=== PATIENT | male | born 1965 | race Caucasian/White ===

== ENCOUNTER 2019-10-06 22:48 | Inpatient (IN) | payer SELFPAY ==
[~2019-10-06] VITALS: Ht 180.3 cm; Wt 117.5 kg
[2019-10-06 22:52] VITALS: Ht 180.3 cm; Wt 117.5 kg
--- NOTE | 2019-10-06 23:22 | NUR ---
PT PRESENTS TO ER TODAY WITH A GENERALIZES RASH THAT STARTED THIS AM. PT REPORTS THE RASH IS ITCHY BUT DENIES ANY PAIN. PT DENIES ANY FEVER OR N/V AT HOME. PT DENIES ANY CHANGES IN HIS DIET AND PT DENIES TAKING ANY MEDICATIONS AT HOME. PT DENIES ANY PAIN AT THIS TIME. PT NOTED WIHT A GENERALIZED RED AND RAISED RASH. PT IS A/O X4. RESP ARE E/U. NO ACUTE DISTRESS NOTED.
[2019-10-06 23:35] LABS: BASOPHIL % 0.7 % (0-2); PLATELET COUNT 200 x10^3mcL (130-400); RED CELL DISTRIBUTION WIDTH 12.6 % (11.5-14.5)
[2019-10-06 23:46] LABS: CALCIUM 8.3 mg/dL (8.5-10.1); CARBON DIOXIDE 34.5 mmol/L (21-32); CHLORIDE SERUM 100 mmol/L (98-107); CREATININE SERUM 1.1 mg/dL (0.7-1.3); GFR1 > 60 mL/min; GLUCOSE SERUM 229 mg/dL (74-106); POTASSIUM SERUM 4.4 mmol/L (3.5-5.1); SODIUM SERUM 136 mmol/L (136-145)
[2019-10-06 23:51] LABS: ALKALINE PHOSPHATASE 105 U/L (46-116); ALT/SGPT 33 U/L (16-63); AST/SGOT 21 U/L (15-37); BILIRUBIN TOTAL 0.6 mg/dL (0.20-1.00); C REACTIVE PROTEIN 1.4 mg/dL (<=0.9)
[2019-10-06 23:59] LABS: ALBUMIN 3.2 g/dL (3.4-5.0)
--- NOTE | 2019-10-07 02:08 | NUR ---
PT RESTING WITH EYE CLOSED AND EASILY AROUSABLE. PT VITALS ARE STABLE. PT DENIES ANY PAIN AT THIS TIME. PT IS A/O X4. NO ACUTE DISTRESS NTOED.
--- NOTE | 2019-10-07 04:05 | NUR ---
REPORT GIVEN TO PAOLA GARCIA TO ASSUME CARE OF PT.
--- NOTE | 2019-10-07 04:20 | NUR ---
Pt. received via wheelchair with nurse accompanying patient. Pt. is a/o x3, able to make needs known, able to follow commands, and has no c/o h/a at this time. Pt. was admitted d/t HIV infeciton + redness found throughout body. Pictures have been taken, and forwarded to MD at this time. Pt. denies any pain w/ the redness, but slight itchiness is noted. Pt. has been given a PRN order for Benadryl, offered pt. but pt. does not request any benadryl at this time. Redness is noted to BLE around the thigh area, all throughout the back, mostly throughout the abdomen and the chest area, redness is also noted on the BUE mostly on the hand (both palm and back area), redness noted by the shoulder are also on BUE. Raised portions of the reddened area found throughout the areas noted prior. Otherwise, pt. is afebrile, pt. has no c/o of pain, c/p, n/v/diziness, or s/o distress. Pt. also noted to have h(x) of DM, will f/u in the AM w/ accuchecks and A1C d/t noncompliance w/ medications for both HIV and DM at this time. Pt. safety in check w/ call light placed within reach, pt. educated on when and how to use call light system, will continue to monitor pt. at this time.
[2019-10-07 05:29] VITALS: BP 135/85
--- NOTE | 2019-10-07 07:30 | NUR ---
RECEIVED HAND OFF REPORT FROM NIGHT NURSE. PATIENT WAS ADMITTED FOR RASH ALL OVER BODY, PHOTOS DOCUMENTED BY PREVIOUS SHIFT. HIV POSITIVE BUT NONCOMPLIANT. NO OTHER COMPLAINTS REPORTED TO PREVIOUS SHIFT. CURRENTLY PAITENT IS RESTING WITH EYES CLOSED, BREATHING REGULAR AND UNLABORED, OCCASIONAL SNORES HEARD, LEFT SIDE LAYING. NO APPARENT SIGNS OF DISTRESS. MEDSURG PATIENT. IV TO LEFT AC INFUSING WELL AT THIS TIME, NS @100ML/HR. NO S/S OF INFILTRATION. CALL LIGHT WITHIN REACH, WILL CONTINUE TO MONITOR
[2019-10-07 08:01] LABS: BASOPHIL % 0.4 % (0-2); PLATELET COUNT 184 x10^3mcL (130-400); RED CELL DISTRIBUTION WIDTH 12.8 % (11.5-14.5)
[2019-10-07 08:22] LABS: CALCIUM 7.9 mg/dL (8.5-10.1); CARBON DIOXIDE 26.2 mmol/L (21-32); CHLORIDE SERUM 101 mmol/L (98-107); CREATININE SERUM 0.8 mg/dL (0.7-1.3); GFR1 > 60 mL/min; GLUCOSE SERUM 124 mg/dL (74-106); MAGNESIUM 1.9 mg/dL (1.8-2.4); PHOSPHOROUS 3.1 mg/dL (2.5-4.9); POTASSIUM SERUM 3.8 mmol/L (3.5-5.1); SODIUM SERUM 134 mmol/L (136-145)
--- NOTE | 2019-10-07 08:48 | NUR ---
PATIENT AWAKE TO VOICE. LAYING SEMFOWLERS IN BED. A/O X4, DIFFUSE RASH PRESENT OVER ANTERIOR AND POSTERIOR OF TRUNK, LEGS AND ARMS. PATIENT STATING THAT IT ITCHES AT TIMES BUT KNOWS NOT TO IRRITATE IT BY SCRATCHING. NO WEAKNESS NOTED, ABLE TO TURN AND REPOSITION INDEPENDENTLY, LUNGS CTA, NO COUGH NOTED. DENIES CHEST PAIN. MEDSURG PATIENT. EKG DONE BY RT AT THIS TIME. PATIENT HAD EATEN BREAKFAST. CALL LIGHT WITHIN REACH
--- NOTE | 2019-10-07 09:30 | NUR ---
GIL GAS OPERATIONS ANALYST, ROUNDED ON PATIENT AND UPDATED PATIENT ON PLAN OF CARE. PATIENT STATING THAT HE CHEST IS BURNING AFTER BREATHING TREATMENT. LUNGS SOUNDS IMPROVED, PATIENT HAD QUESTIONS ABOUT PRVIOUS STAYS IN HOSPITAL AND POTENTION GI ISSUES. ADVISED PATIENT TO CONSULT PCP TO MANAGE CARE. ADMINSTERED MEDICATION PER MAR. EDUCATED ON NEW MEDICATION, HEPARIN AND ANTIBIOTIC THERAPY. PATIENT UNDERSTANDING OF EDUCATION. CALL LIGHT WITHIN REACH, WILL CONTINUE TO MONITOR
[2019-10-07 09:32] VITALS: BP 146/87
[2019-10-07 10:48] LABS: AMPHETAMINE QUAL UR POSITIVE (See below)
--- NOTE | 2019-10-07 10:50 | NUR ---
FORWARDED CALL FROM PATIENT FAMILY MEMBER TO PATIENT ROOM. PATIENT PROVIDED URINE SAMPLE. TAKEN TO LAB
[2019-10-07 12:53] LABS: UA SPECIFIC GRAVITY >=1.030 (1.005-1.035); microscopic required? YES
[2019-10-07 12:55] VITALS: BP 151/88
[2019-10-07 12:55] LABS: urine erythrocyte NEGATIVE (NEGATIVE)
--- NOTE | 2019-10-07 15:46 | NUR ---
Discount pharmacy card and list to low cost medical clinics given to patient by Marla.
--- NOTE | 2019-10-07 16:24 | NUR ---
PATIENT SITTING UP ON SIDE OF BED. STATING THAT HE THINKS RASH IS IMPROVING, NO ITCHINESS AT THIS TIME. CALL LIGHT WITHIN REACH
[2019-10-07 16:29] VITALS: BP 144/95
--- NOTE | 2019-10-07 18:44 | NUR ---
PATIENT ATE DINNER WITH NO ISSUES. NO COMPLAINTS. DID NOT ASK FOR BENADRYL DURING SHIFT TO TREAT ITCHINESS. WILL ENDORSE TO [employer]
[2019-10-07 19:15] VITALS: BP 146/80
--- NOTE | 2019-10-07 19:36 | NUR ---
GAVE HAND OFF REPORT TO NIGHT NURSEALFONSO. ENDORSED CARE AND ANSWERED ALL QUESTIONS
--- NOTE | 2019-10-07 19:37 | NUR ---
RECEIVED PT AWAKE ALERT AND VERBALLY RESPONSIVE.DENIES SOB/DIFFICULTY BREATHING.BP 146/80 MMHG,HR 95.SCATTERED RAISED RASHES TO ARMS,CHEST AND BACK.RED/PURPLISH DISCOLORATION.WILL CONTINUE TO MONITOR.
[2019-10-08 04:06] LABS: RAPID PLASMA REAGIN Non Reactive (Non Reactive)
--- NOTE | 2019-10-08 04:43 | NUR ---
PT SLEPT WELL .NO C/O SOB/DIFFICULTY BREATHING ALL NIGHT.RASHES ALL OVER HIS BODY STILL NOTICEABLE.ON SOLUMEDROL IV.ALL NEEDS ATTENDED.WILL CONTINUE TO MONITOR.
[2019-10-08 05:54] VITALS: BP 134/83
[2019-10-08 06:42] LABS: BASOPHIL % 0.1 % (0-2); PLATELET COUNT 207 x10^3mcL (130-400); RED CELL DISTRIBUTION WIDTH 12.8 % (11.5-14.5)
[2019-10-08 07:00] LABS: CALCIUM 8.7 mg/dL (8.5-10.1); CARBON DIOXIDE 26.9 mmol/L (21-32); CHLORIDE SERUM 102 mmol/L (98-107); CREATININE SERUM 0.8 mg/dL (0.7-1.3); GFR1 > 60 mL/min; GLUCOSE SERUM 222 mg/dL (74-106); PHOSPHOROUS 3.3 mg/dL (2.5-4.9); SODIUM SERUM 135 mmol/L (136-145)
--- NOTE | 2019-10-08 07:35 | NUR ---
RECEIVED PT FROM TELEVISION ENGINEER. PT AWAKE, ALERT A/OX4. PT ON ROOM AIR WITH NO RESP DISTRESS NOTED. IV ACCESS LAC, CDI SALINE LOCKED. PERIPHERAL PULSES PALPABLE, NO EDEMA NOTED. PT REPORTS NO ISSUES WITH ELIMINATION AT THIS TIME. PT DENIES PAIN. PT NOTED TO HAVE GENERALIZED RASH TO BACK, CHEST, ARMS, NECK AND THIGHS. PT REPORS NO PAIN, ONLY ITCHING. PT ABLE TO AMBULATE WITH NO WEAKNESS NOTED. SAFETY MEASURES IN PLACE, BED LOW AND LOCKED. CALL LIGHT WITHIN REACH.
[2019-10-08 09:06] VITALS: BP 140/90
--- NOTE | 2019-10-08 09:42 | NUR ---
PT COMPLAINING OF ITCHINESS TO RASH OVER BODY. BENADRYL ADMINISTERED ORDERED PRN. WILL MONITOR.
--- NOTE | 2019-10-08 11:52 | NUR ---
PT RESTING COMFORTABLY AFTER ADMINISTRATION OF BENADRYL. PT REPORTS FEELING BETTER.
[2019-10-08] MEDS ORDERED: BENADRYL ALLERG25 M1 PO (12:31)
[2019-10-08] MEDS ORDERED: MEDDP PO (12:31)
--- NOTE | 2019-10-08 12:50 | NUR ---
PT ANXIOUS TO GO HOME AT THIS TIME. SITTING AT EDGE OF BED WAITING TO LEAVE. PT REPORTS HE WILL DRIVE HIMSELF HOME.
[2019-10-08 12:53] VITALS: BP 129/76
--- NOTE | 2019-10-08 13:25 | NUR ---
DISCHARGE INSTRUCTIONS/EDUCATION PROVIDED TO PATIENT. PT TO FOLLOW UP WITH APPT PROVIDED. PT VERBALIZED UNDERSTANDING. IV ACCESS REMOVED WITH CATHETER INTACT. NO BLEEDING OR SWELLING NOTED. PT DENIES PAIN AT THIS TIME. PT TO BE TAKEN TO [employer] FOR DISCHARGE. SAFETY MAINTAINED.
== END 2019-10-08 13:30 | disposition home or self-care (01) | DRG 607 ==
LOC: ED 22:48 → MU 10-07 03:26
PROVIDERS: Emergency Medicine; ADMIT Internal Medicine
DX: L27.0 Generalized skin eruption due to drugs and medicaments taken internally (principal); B20 Human immunodeficiency virus [HIV] disease; E44.1 Mild protein-calorie malnutrition; E87.1 Hypo-osmolality and hyponatremia; E11.9 Type 2 diabetes mellitus without complications; E83.51 Hypocalcemia; T36.0X5A Adverse effect of penicillins, initial encounter; Z79.84 Long term (current) use of oral hypoglycemic drugs; Z87.891 Personal history of nicotine dependence; Z68.35 Body mass index [BMI] 35.0-35.9, adult; Y92.89 Other specified places as the place of occurrence of the external cause; Z79.899 Other long term (current) drug therapy
CPT/HCPCS: G0378; J2920; J2930; J7030; Q0092; Q0163